=== PATIENT | female | born 1960 | race Two or more races ===

== ENCOUNTER 2018-06-12 10:36 | Outpatient (CLI) | payer OTHER | END 2018-06-12 15:09 | disposition home or self-care (01) | LOC: MAMO-SONO 10:36 | DX: N95.1 Menopausal and female climacteric states (principal); N64.89 Other specified disorders of breast; R10.2 Pelvic and perineal pain; Z12.31 Encounter for screening mammogram for malignant neoplasm of breast ==

== ENCOUNTER 2018-08-24 13:18 | Outpatient (CLI) | payer OTHER | END 2018-08-24 13:31 | disposition home or self-care (01) | LOC: RAD 501 13:18 | DX: M79.641 Pain in right hand (principal); M79.642 Pain in left hand ==

== ENCOUNTER 2019-01-03 11:07 | Outpatient (CLI) | payer OTHER | END 2019-01-03 11:15 | disposition home or self-care (01) | LOC: SONOGRAMA 11:07 | DX: N63.10 Unspecified lump in the right breast, unspecified quadrant (principal); N63.20 Unspecified lump in the left breast, unspecified quadrant ==

== ENCOUNTER 2020-04-07 12:53 | Outpatient (CLI) | payer OTHER | END 2020-04-07 13:08 | disposition home or self-care (01) | LOC: MAMO-SONO 12:53 | PROVIDERS: ATTEND Obstetrics & Gynecology | DX: N60.11 Diffuse cystic mastopathy of right breast (principal) ==

== ENCOUNTER 2022-11-10 12:57 | Outpatient (CLI) | payer OTHER | END 2022-11-10 13:13 | disposition home or self-care (01) | LOC: MAMO-SONO 12:57 | PROVIDERS: ATTEND Obstetrics & Gynecology | DX: N60.11 Diffuse cystic mastopathy of right breast (principal); Z12.31 Encounter for screening mammogram for malignant neoplasm of breast ==

== ENCOUNTER 2024-07-09 14:15 | Outpatient (CLI) | payer OTHER | END 2024-07-09 14:28 | disposition home or self-care (01) | LOC: RAD 14:15 | PROVIDERS: ATTEND Ophthalmology | DX: M17.0 Bilateral primary osteoarthritis of knee (principal); R07.89 Other chest pain ==

== ENCOUNTER 2024-12-04 14:01 | Outpatient (CLI) | payer OTHER | END 2024-12-04 14:10 | disposition home or self-care (01) | LOC: MAMO-SONO 14:01 | PROVIDERS: ATTEND Obstetrics & Gynecology | DX: N60.11 Diffuse cystic mastopathy of right breast (principal) ==